=== PATIENT | male | born 2000 | race African-American/Black ===

== ENCOUNTER 2020-01-24 14:05 | Emergency (ER) | payer BC ==
[~2020-01-24] VITALS: Ht 180.3 cm; Wt 79.4 kg
[2020-01-24] MEDS ORDERED: AZITHROMYCIN250 MG PO (16:27)
[2020-01-24] MEDS ORDERED: SUPRAX400 M1 PO (16:27)
[2020-01-24 16:36] VITALS: BP 121/74
== END 2020-01-24 16:36 | disposition home or self-care (01) ==
LOC: M.ERS 14:05
DX: Z20.2 Contact with and (suspected) exposure to infections with a predominantly sexual mode of transmission (principal)